=== PATIENT | female | born 1975 | race Caucasian/White ===

== ENCOUNTER 2016-06-07 19:15 | Emergency (ER) | payer MEDICAID ==
[~2016-06-07] VITALS: Ht 160 cm; Wt 42.0 kg
[~2016-06-07 19:15] MED LIST: IBUP800T23 PO
[2016-06-07 19:16] VITALS: BP 135/88; PULSE 92; RESP 14; TEMP 98.5; O2SAT 98
[2016-06-07 19:30] VITALS: BP 111/74; PULSE 80; RESP 16; O2SAT 99
[2016-06-07] MEDS ORDERED: SODIUM CHLOR 0.9% 1000 ML INJ 1,000 ML IV SCH (19:42)
[2016-06-07] MEDS ORDERED: LIDOCAINE VISCOUS 2% SOLN 15 ML UDC PO ONE (19:45)
[2016-06-07] MEDS ORDERED: SODIUM CHLORIDE 0.9% FLUSH 5 ML FLUSH IVF PRN (19:45)
[2016-06-07] MEDS ORDERED: ALUMINUM/MAGNESIUM/SIMETH 30 ML CUP PO ONE (19:45)
[2016-06-07] MEDS ORDERED: ONDANSETRON HCL 4 MG/2 ML VIAL IVP ONE (19:45)
[2016-06-07] MEDS ORDERED: HYDROmorphone HCL PF 1 MG/ML VIAL IVS ONE (19:45)
[2016-06-07 20:11] LABS: AUTOMATED NEUTROPHIL # 7.7 TH/MM3 (1.8-7.7); BASOPHIL # 0.1 TH/MM3 (0-0.2); BASOPHIL % 0.5 % (0.0-2.0); EOSINOPHIL # 0.1 TH/MM3 (0-0.4); EOSINOPHIL % 1.2 % (0.0-4.0); HEMATOCRIT 38.5 % (35.0-46.0); HEMO FLAGS DIFF FINAL; LYMPHOCYTE # 1.7 TH/MM3 (1.0-4.8); MEAN CELL VOLUME 87.9 FL (80.0-100.0); MONO % 7.9 % (0.0-8.0); NEUT % 74.4 % (16.0-70.0); PLATELET COUNT 323 TH/MM3 (150-450); RED BLOOD COUNT 4.38 MIL/MM3 (4.00-5.30); RED CELL DISTRIBUTION WIDTH 14.2 % (11.6-17.2); WHITE BLOOD COUNT 10.4 TH/MM3 (4.0-11.0)
[2016-06-07] MEDS ORDERED: HYDR-3533 PO (20:19)
[2016-06-07] MEDS ORDERED: ZOFR4TAB3 SL (20:19)
--- NOTE | 2016-06-07 20:19 | PD ---
HPI Chief Complaint: Flank/Kidney Pain Time Seen by Provider: 19:32 Travel History International Travel<30 days: No Contact w/Intl Traveler<30days: No History of Present Illness HPI 41-year-old female arrives complaining of epigastric abdominal pain and left upper quadrant abdominal pain which radiates to the back. She states it feels similar to prior episodes of pancreatitis. She woke up with the pain. He states she drinks alcohol occasionally weekends but not daily. Pain is constant and worse with palpitation. No fever. She vomited twice today. She vomited after eating sloppy [employer] for dinner. No VB/VD. No urinary complaints. Tylenol and ibuprofen have not been helpful. PFSH Past Medical History Anemia: Yes Autoimmune Disease: Yes Anxiety: Yes Cancer: No Cardiovascular Problems: No Chemotherapy: No Diminished Hearing: No Medical other: Yes (ANEMIA) Musculoskeletal: No Neurologic: No Psychiatric: Yes Reproductive: No Respiratory: No Integumentary: Yes (NEURO FIBROMATOSIS-1) Immunizations Current: No Radiation Therapy: No Tetanus Vaccination: Unknown ?: Not : 4 Para: 3 Miscarriage: 1 : 0 Ovarian Cysts: Yes Tubal Ligation: Yes (12/22) Past Surgical History Abdominal Surgery: Yes (LAPAROSCOPIC SURGERY FOR ENDOMETRIOSIS) Section: Yes (X2) Cholecystectomy: Yes Gynecologic Surgery: Yes (HYST, C SECTION ) Hysterectomy: Yes Joint Replacement: No Other Surgery: Yes Social History Alcohol Use: Yes (SOCIALLY) Tobacco Use: Yes (1/2PPD) Substance Use: No Allergies-Medications (Allergen,Severity, Reaction): Coded Allergies: Bees (Verified Allergy, Severe, Anaphylaxis, 06/07/16) Latex (Verified Allergy, Severe, SWELLING AND HIVES, 06/07/16) Uncoded Allergies: CLEAR TAPE (Allergy, Severe, BLISTERS, 11/19/14) . NUTS (Allergy, Severe, ITCHING, 11/19/14) . Reported Meds & Prescriptions Reported Meds & Active Scripts Active Zofran Odt (Ondansetron Odt) 4 Mg Tab 4 Mg SL Q8HR PRN Lortab (Hydrocodone-Acetaminophen) 5-325 Mg Tab 1-2 Tab PO Q6H PRN Review of Systems Except as stated in HPI: all other systems reviewed are Neg General / Constitutional: No: Fever Gastrointestinal: Positive: Nausea, Vomiting, Abdominal Pain Physical Exam Narrative GENERAL: 41-year-old female pleasant mild distress SKIN: Warm and dry. HEAD: Atraumatic. Normocephalic. EYES: Pupils equal and round. No scleral icterus. No injection or drainage. ENT: No nasal bleeding or discharge. Mucous membranes pink and moist. NECK: Trachea midline. No JVD. CARDIOVASCULAR: Regular rate and rhythm. No murmur appreciated. RESPIRATORY: No accessory muscle use. Clear to auscultation. Breath sounds equal bilaterally. GASTROINTESTINAL: Soft. Minimal epigastric tenderness. Minimal tenderness in the left upper quadrant. No significant flank tenderness either side. MUSCULOSKELETAL: No obvious deformities. No clubbing. No cyanosis. No edema. NEUROLOGICAL: Awake and alert. No obvious cranial nerve deficits. Motor grossly within normal limits. Normal speech. PSYCHIATRIC: Appropriate mood and affect; insight and judgment normal. Data Data Last Documented VS Vital Signs Date Time Temp Pulse Resp B/P Pulse Ox O2 Delivery O2 Flow Rate FiO2 06/07/16 21:15 76 16 105/87 99 Room Air 06/07/16 19:16 98.5 VS reviewed Orders Complete Blood Count With Diff (06/07/16 19:42) Comprehensive Metabolic Panel (06/07/16 19:42) Lipase (06/07/16 19:42) Iv Access Insert/Monitor (06/07/16 19:42) Ecg Monitoring (06/07/16 19:42) Oximetry (06/07/16 19:42) Ondansetron Inj (Zofran Inj) (06/07/16 19:45) Sodium Chlor 0.9% 1000 Ml Inj (Ns 1000 M (06/07/16 19:42) Sodium Chloride 0.9% Flush (Ns Flush) (06/07/16 19:45) Hydromorphone Pf Inj (Dilaudid Pf Inj) (06/07/16 19:45) Al-Mag Hy-Si 40-40-4 Mg/Ml Liq (Mag-Al P (06/07/16 19:45) Lidocaine 2% Viscous (Xylocaine 2% Visco (06/07/16 19:45) Labs Laboratory Tests Test 06/07/16 19:45 White Blood Count 10.4 TH/MM3 Red Blood Count 4.38 MIL/MM3 Hemoglobin 12.7 GM/DL Hematocrit 38.5 % Mean Corpuscular Volume 87.9 FL Mean Corpuscular Hemoglobin 29.0 PG Mean Corpuscular Hemoglobin 33.0 % Concent Red Cell Distribution Width 14.2 % Platelet Count 323 TH/MM3 Mean Platelet Volume 7.5 FL Neutrophils (%) (Auto) 74.4 % Lymphocytes (%) (Auto) 16.0 % Monocytes (%) (Auto) 7.9 % Eosinophils (%) (Auto) 1.2 % Basophils (%) (Auto) 0.5 % Neutrophils # (Auto) 7.7 TH/MM3 Lymphocytes # (Auto) 1.7 TH/MM3 Monocytes # (Auto) 0.8 TH/MM3 Eosinophils # (Auto) 0.1 TH/MM3 Basophils # (Auto) 0.1 TH/MM3 CBC Comment DIFF FINAL Differential Comment Sodium Level 138 MEQ/L Potassium Level 3.7 MEQ/L Chloride Level 104 MEQ/L Carbon Dioxide Level 26.4 MEQ/L Anion Gap 8 MEQ/L Blood Urea Nitrogen 13 MG/DL Creatinine 0.84 MG/DL Estimat Glomerular Filtration 75 ML/MIN Rate Random Glucose 101 MG/DL Calcium Level 8.6 MG/DL Total Bilirubin 0.5 MG/DL Aspartate Amino Transf 8 U/L (AST/SGOT) Alanine Aminotransferase 16 U/L (ALT/SGPT) Alkaline Phosphatase 62 U/L Total Protein 7.3 GM/DL Albumin 3.8 GM/DL Lipase 109 U/L [facility] Medical Decision Making Medical Screen Exam Complete: Yes Emergency Medical Condition: Yes Medical Record Reviewed: Yes Differential Diagnosis Constipation, Gastritis, Acute Cholecystitis, Biliary Colic, Pancreatitis, ROSALES , Hepatitis, Bowel Obstruction, Cystitis, Mesenteric Ischemia, AAA, Appendicitis , Renal Stone/Hydronephrosis, GERD, perforated viscous Narrative Course CBC & BMP Diagram 06/07/16 19:45 LFTs and lipase are normal. The patient has undergone hysterectomy. She's had 5 CT scans here before. Index of suspicion for medical/surgical emergency is quite low. Her blood work is unremarkable. Minimal epigastric tenderness and LUQ tenderness. Pt reassessed at 915pm and reports feeling better. Return precautions discussed. Pt ready for discharge. Diagnosis Primary Impression: Abdominal pain Qualified Code: R10.13 - Epigastric pain Additional Impression: Nausea & vomiting Qualified Code: R11.2 - Non-intractable vomiting with nausea, unspecified vomiting type Referrals: Chewning,Ravi R. DO 2 days Additional Instructions: You have a choice when it comes to health care, and we are glad that you chose [facility]. Hopefully, we have met your expectations on today's visit. You are welcome to return to [facility] at any time, as we are committed to meeting the health care needs of our community. Med/Other Pt SpecificInfo: Prescription(s) given Scripts Ondansetron Odt (Zofran Odt)4 Mg Tab4 Mg SL Q8HR PRN (NAUSEA OR VOMITING) #15 TAB Ref 0 Prov:Chapito Wiseman MD 06/07/16 Hydrocodone-Acetaminophen (Lortab)5-325 Mg Tab1-2 Tab PO Q6H PRN (PAIN SCALE 6 TO 10) #15 TAB Ref 0 Prov:Chapito Wsieman MD 06/07/16 Disposition: 01 DISCHARGE HOME Condition: Stable Chapito Wiseman MD Jun 07, 2016 20:19
[2016-06-07 20:30] VITALS: BP 106/81; PULSE 70; RESP 16; O2SAT 99
[2016-06-07 20:41] LABS: ANION GAP 8 MEQ/L (5-15); AST (GOT) 8 U/L (15-37); BICARBONATE 26.4 MEQ/L (21.0-32.0); BLOOD UREA NITROGEN 13 MG/DL (7-18); CHLORIDE 104 MEQ/L (98-107); GLOMERULAR FILTRATION RATE 75 ML/MIN (>89); POTASSIUM 3.7 MEQ/L (3.5-5.1); SODIUM (NA) 138 MEQ/L (136-145)
[2016-06-07 20:45] LABS: ALKALINE PHOSPHATASE 62 U/L (45-117); ALT (GPT) 16 U/L (10-53); TOTAL BILIRUBIN ADULT 0.5 MG/DL (0.2-1.0)
[2016-06-07 21:15] VITALS: BP 105/87; PULSE 76; RESP 16; O2SAT 99
== END 2016-06-07 21:57 | disposition home or self-care (01) ==
LOC: NEPC 19:15
DX: R10.13 Epigastric pain (principal); R11.2 Nausea with vomiting, unspecified; D64.9 Anemia, unspecified; F17.210 Nicotine dependence, cigarettes, uncomplicated
CPT/HCPCS: 80053; 83690; 85025; 96374; 96375; 99284; J1170; J2405; J7030

== ENCOUNTER 2016-10-18 13:23 | Emergency (ER) | payer MEDICAID ==
[~2016-10-18] VITALS: Ht 157.5 cm; Wt 45.0 kg
[~2016-10-18 13:23] MED LIST changes: +HYDR-3533 PO; -IBUP800T23 PO; +ZOFR4TAB3 SL
[2016-10-18 13:25] VITALS: BP 140/68; PULSE 114; RESP 20; TEMP 98.4; O2SAT 100
--- NOTE | 2016-10-18 14:35 | PD ---
HPI Chief Complaint: Pain: Acute or Chronic Time Seen by Provider: 14:32 Travel History International Travel<30 days: No Contact w/Intl Traveler<30days: No Traveled to known affect area: No History of Present Illness HPI Patient is a 41-year-old female presenting to emergency for evaluation of right groin pain. Patient states it started Wednesday when she woke up. She denies any preceding injury or trauma, she denies any nausea, vomiting, dysuria, fevers. Patient states she took Tylenol this morning with no significant relief of her symptoms. She reports a history of ovarian cysts, she has had a partial hysterectomy. She reports the pain is 8 out of 10 and states it's sharp and shooting. PFSH Past Medical History Anemia: Yes Autoimmune Disease: Yes Anxiety: Yes Cancer: No Cardiovascular Problems: No Chemotherapy: No Diminished Hearing: No Musculoskeletal: No Neurologic: No Psychiatric: Yes Reproductive: No Respiratory: No Integumentary: Yes (NEURO FIBROMATOSIS-1) Immunizations Current: No Radiation Therapy: No ?: Not : 4 Para: 3 Miscarriage: 1 : 0 Ovarian Cysts: Yes Tubal Ligation: Yes (12/22) Past Surgical History Abdominal Surgery: Yes (LAPAROSCOPIC SURGERY FOR ENDOMETRIOSIS) Section: Yes (X2) Cholecystectomy: Yes Gynecologic Surgery: Yes (HYST, C SECTION ) Hysterectomy: Yes Joint Replacement: No Other Surgery: Yes Social History Alcohol Use: Yes (SOCIALLY) Tobacco Use: Yes (1/2PPD) Substance Use: No Allergies-Medications (Allergen,Severity, Reaction): Coded Allergies: Bees (Verified Allergy, Severe, Anaphylaxis, 10/18/16) Latex (Verified Allergy, Severe, SWELLING AND HIVES, 10/18/16) Uncoded Allergies: CLEAR TAPE (Allergy, Severe, BLISTERS, 11/19/14) . NUTS (Allergy, Severe, ITCHING, 11/19/14) . Reported Meds & Prescriptions Reported Meds & Active Scripts Active Tramadol (Tramadol HCl) 50 Mg Tab 50 Mg PO Q4H PRN Zofran Odt (Ondansetron Odt) 4 Mg Tab 4 Mg SL Q8HR PRN Lortab (Hydrocodone-Acetaminophen) 5-325 Mg Tab 1-2 Tab PO Q6H PRN Review of Systems Except as stated in HPI: all other systems reviewed are Neg Respiratory: No: Shortness of Breath Gastrointestinal: Positive: Abdominal Pain, No: Nausea, Vomiting Musculoskeletal: Positive: Myalgias Neurologic: No: Weakness, Dizziness Physical Exam Narrative GENERAL: Well-developed, well-nourished, alert female. Resting comfortably in no acute distress. SKIN: Focused skin assessment warm/dry. HEAD: Atraumatic. Normocephalic. EYES: Pupils equal and round. No scleral icterus. No injection or drainage. ENT: No nasal bleeding or discharge. Mucous membranes pink and moist. NECK: Trachea midline. No JVD. CARDIOVASCULAR: Regular rate and rhythm. No murmur appreciated. RESPIRATORY: No accessory muscle use. Clear to auscultation. Breath sounds equal bilaterally. GASTROINTESTINAL: Abdomen soft, mildly tender in suprapubic region, nondistended. Hepatic and splenic margins not palpable. Bowel sounds, no rebound, guarding MUSCULOSKELETAL: No obvious deformities. No clubbing. No cyanosis. No edema. NEUROLOGICAL: Awake and alert. No obvious cranial nerve deficits. Motor grossly within normal limits. Normal speech. PSYCHIATRIC: Appropriate mood and affect; insight and judgment normal. Data Data Last Documented VS Vital Signs Date Time Temp Pulse Resp B/P Pulse Ox O2 Delivery O2 Flow Rate FiO2 10/18/16 16:31 16 10/18/16 13:25 98.4 114 140/68 100 Room Air Orders Urinalysis - C+S If Indicated (10/18/16 14:27) Ct Abd/Pel W Iv Contrast(Rout) (10/18/16 ) Basic Metabolic Panel (Bmp) (10/18/16 15:06) Complete Blood Count With Diff (10/18/16 15:06) Iv Access Insert/Monitor (10/18/16 15:06) Diatrizoate Liq ( Gastroview Liq) (10/18/16 15:15) Oral Contrast - Adult (10/18/16 15:17) Morphine Inj (Morphine Inj) (10/18/16 15:45) Iohexol 350 Inj (Omnipaque 350 Inj) (10/18/16 17:06) Labs Laboratory Tests Test 10/18/16 10/18/16 14:57 15:37 Urine Color YELLOW Urine Turbidity CLEAR Urine pH 7.0 Urine Specific [employer] 1.010 Urine Protein NEG mg/dL Urine Glucose (UA) NEG mg/dL Urine Ketones NEG mg/dL Urine Occult Blood NEG Urine Nitrite NEG Urine Bilirubin NEG Urine Urobilinogen LESS THAN 2.0 MG/DL Urine Leukocyte Esterase NEG Urine RBC LESS THAN 1 /hpf Urine WBC 1 /hpf Urine Squamous Epithelial 3 /hpf Cells Urine Bacteria RARE /hpf Urine Mucus FEW /lpf Microscopic Urinalysis Comment CULT NOT INDICATED White Blood Count 7.6 TH/MM3 Red Blood Count 4.59 MIL/MM3 Hemoglobin 13.3 GM/DL Hematocrit 40.2 % Mean Corpuscular Volume 87.6 FL Mean Corpuscular Hemoglobin 29.0 PG Mean Corpuscular Hemoglobin 33.1 % Concent Red Cell Distribution Width 13.7 % Platelet Count 282 TH/MM3 Mean Platelet Volume 7.7 FL Neutrophils (%) (Auto) 86.4 % Lymphocytes (%) (Auto) 8.7 % Monocytes (%) (Auto) 4.3 % Eosinophils (%) (Auto) 0.1 % Basophils (%) (Auto) 0.5 % Neutrophils # (Auto) 6.6 TH/MM3 Lymphocytes # (Auto) 0.7 TH/MM3 Monocytes # (Auto) 0.3 TH/MM3 Eosinophils # (Auto) 0.0 TH/MM3 Basophils # (Auto) 0.0 TH/MM3 CBC Comment DIFF FINAL Differential Comment Sodium Level 138 MEQ/L Potassium Level 4.4 MEQ/L Chloride Level 103 MEQ/L Carbon Dioxide Level 29.3 MEQ/L Anion Gap 6 MEQ/L Blood Urea Nitrogen 12 MG/DL Creatinine 0.89 MG/DL Estimat Glomerular Filtration 71 ML/MIN Rate Random Glucose 88 MG/DL Calcium Level 9.2 MG/DL MDM Medical Decision Making Medical Screen Exam Complete: Yes Emergency Medical Condition: Yes Interpretation(s) Laboratory Tests Test 10/18/16 10/18/16 14:57 15:37 Urine Color YELLOW Urine Turbidity CLEAR Urine pH 7.0 Urine Specific [employer] 1.010 Urine Protein NEG mg/dL Urine Glucose (UA) NEG mg/dL Urine Ketones NEG mg/dL Urine Occult Blood NEG Urine Nitrite NEG Urine Bilirubin NEG Urine Urobilinogen LESS THAN 2.0 MG/DL Urine Leukocyte Esterase NEG Urine RBC LESS THAN 1 /hpf Urine WBC 1 /hpf Urine Squamous Epithelial 3 /hpf Cells Urine Bacteria RARE /hpf Urine Mucus FEW /lpf Microscopic Urinalysis Comment CULT NOT INDICATED White Blood Count 7.6 TH/MM3 Red Blood Count 4.59 MIL/MM3 Hemoglobin 13.3 GM/DL Hematocrit 40.2 % Mean Corpuscular Volume 87.6 FL Mean Corpuscular Hemoglobin 29.0 PG Mean Corpuscular Hemoglobin 33.1 % Concent Red Cell Distribution Width 13.7 % Platelet Count 282 TH/MM3 Mean Platelet Volume 7.7 FL Neutrophils (%) (Auto) 86.4 % Lymphocytes (%) (Auto) 8.7 % Monocytes (%) (Auto) 4.3 % Eosinophils (%) (Auto) 0.1 % Basophils (%) (Auto) 0.5 % Neutrophils # (Auto) 6.6 TH/MM3 Lymphocytes # (Auto) 0.7 TH/MM3 Monocytes # (Auto) 0.3 TH/MM3 Eosinophils # (Auto) 0.0 TH/MM3 Basophils # (Auto) 0.0 TH/MM3 CBC Comment DIFF FINAL Differential Comment Sodium Level 138 MEQ/L Potassium Level 4.4 MEQ/L Chloride Level 103 MEQ/L Carbon Dioxide Level 29.3 MEQ/L Anion Gap 6 MEQ/L Blood Urea Nitrogen 12 MG/DL Creatinine 0.89 MG/DL Estimat Glomerular Filtration 71 ML/MIN Rate Random Glucose 88 MG/DL Calcium Level 9.2 MG/DL Vital Signs Date Time Temp Pulse Resp B/P Pulse Ox O2 Delivery O2 Flow Rate FiO2 10/18/16 13:25 98.4 114 20 140/68 100 Room Air Differential Diagnosis Muscle strain versus ovarian cyst versus urinary tract infection versus appendicitis versus other Narrative Course Patient's a 41 year old female presenting with right pelvic pain, suprapubic pain since Wednesday. Patient's vital signs are stable, patient is mildly tender on exam. She had a partial hysterectomy but her ovaries are intact. Imaging ordered and pending. Patient given pain medication per my attending physician. Labs reviewed and no acute disease identified. CT scan abdomen and pelvis shows cystic right ovary. There are also changes to the duodenum that were present on prior exam, hepatic lesions which are nonspecific, likely representing prominent emphysematous change at the lung bases with some mild increased parenchymal density at the medial right middle lobe. This density is less prominent now than on prior exams. Patient will be discharged home. She will be given a short course of oral pain medication. 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 She is encouraged to return to emergency department for new or worsening symptoms. Patient verbalized understanding of instructions. Patient is stable for discharge. Diagnosis Primary Impression: Ovarian cyst Referrals: [facility] Patient Instructions: General Instructions, Ovarian Cyst (DC) Additional Instructions: Follow-up with her primary doctor Follow-up with your electric locomotive firer/fireman Take medications as directed Return to emergency department for any new or worsening symptoms Do not drive or operate heavy machinery while taking narcotic pain medication Med/Other Pt SpecificInfo: Prescription(s) given Scripts Tramadol 50 Mg Tab50 Mg PO Q4H PRN (PAIN) #10 TAB Ref 0 Prov:Azeem Bland MD 10/18/16 Disposition: 01 DISCHARGE HOME Condition: Stable [facility] Oct 18, 2016 14:35
[2016-10-18] MEDS ORDERED: DIATRIZOATE MEGLUM/DIATRIZOATE SOD 9 ML CUP ONE (15:15)
[2016-10-18] MEDS ORDERED: MORPHINE SULFATE 4 MG/ML INJ IV PUSH ONE (15:45)
[2016-10-18 16:26] LABS: AUTOMATED NEUTROPHIL # 6.6 TH/MM3 (1.8-7.7); BASOPHIL % 0.5 % (0.0-2.0); EOSINOPHIL % 0.1 % (0.0-4.0); HEMATOCRIT 40.2 % (35.0-46.0); HEMO FLAGS DIFF FINAL; LYMPH % 8.7 % (9.0-44.0); LYMPHOCYTE # 0.7 TH/MM3 (1.0-4.8); MEAN CELL VOLUME 87.6 FL (80.0-100.0); MEAN CORPUSCULAR HGB CONC 33.1 % (32.0-36.0); MONO % 4.3 % (0.0-8.0); NEUT % 86.4 % (16.0-70.0); PLATELET COUNT 282 TH/MM3 (150-450); RED BLOOD COUNT 4.59 MIL/MM3 (4.00-5.30); RED CELL DISTRIBUTION WIDTH 13.7 % (11.6-17.2); WHITE BLOOD COUNT 7.6 TH/MM3 (4.0-11.0)
[2016-10-18 16:31] VITALS: RESP 16
[2016-10-18 16:43] LABS: BICARBONATE 29.3 MEQ/L (21.0-32.0); POTASSIUM 4.4 MEQ/L (3.5-5.1)
[2016-10-18 16:51] LABS: BACTERIA, URINE RARE /hpf; BLOOD, URINE NEG (NEG); COMMENT (UR) CULT NOT INDICATED; CULTURE IF INDICATED CULT NOT INDICATED; GLUCOSE,URINE NEG (NEG); KETONE, URINE NEG (NEG); MUCUS URINE FEW /lpf (OCC); NITRITE,URINE NEG (NEG); SQUAMOUS EPITHELIAL CELL URINE 3 /hpf (0-5); URINE COLOR YELLOW (YELLW/STRAW)
[2016-10-18] MEDS ORDERED: IOHEXOL 350 MG/ML 10 ML VIAL (for RAD DIAG) IV ONE (17:06)
--- NOTE | 2016-10-18 17:49 | RADRPT ---
EXAM DATE/TIME: 10/18/2016 17:03 [facility] COMPARISON: CT ABDOMEN & PELVIS W CONTRAST, July 04, 2010, 22:45. CT ABDOMEN & PELVIS W/O CONTRAST, December 10, 2013, 16:22. CT ABDOMEN & PELVIS W/O CONTRAST, July 15, 2014, 15:11. CT ABDOMEN & PELVIS W/O CONTR AST, March 22, 2013, 17:03. CT ABDOMEN & PELVIS W CONTRAST, March 02, 2013, 18:59. INDICATIONS : Right lower abdomen pain for two days. IV CONTRAST: 70 cc Omnipaque 350 (iohexol) IV ORAL CONTRAST: Partial prescribed oral contrast ingested. RADIATION DOSE: 4.49 CTDIvol (mGy) MEDICAL HISTORY : neuro fibromatosis SURGICAL HISTORY : Hysterectomy. Tubal ligation. ENCOUNTER: Initial ACUITY: 2 days PAIN SCALE: 8/10 LOCATION: Right lower quadrant TECHNIQUE: Volumetric scanning of the abdomen and pelvis was performed. Using automated exposure control and ad justment of the mA and/or kV according to patient size, radiation dose was kept as low as reasonably achievable to obtain optimal diagnostic quality images. DICOM format image data is available electro nically for review and comparison. FINDINGS: LOWER LUNGS: There is emphysematous change at the lung bases. There is increased density seen at the medial right lingula. This area appeared more prominent on the prior exam. LIVER: There is a 0.6 cm hypodensity seen in the superior aspect of the lateral segment of the left lobe of the liver and a smaller 0.3 cm hypodensity in the anterior segment of the right lobe of the liver. Th e patient is status post cholecystectomy. There is dilatation of the intrahepatic biliary ducts likel y representing a reservoir phenomenon following cholecystectomy. This finding was present previously. SPLEEN: Normal size without lesion. PANCREAS: Within normal limits. KIDNEYS: Normal in size and shape. There is no mass, stone or hydronephrosis. ADRENAL GLANDS: Within normal limits. VASCULAR: There is no aortic aneurysm. BOWEL/MESENTERY: There is dilatation of the proximal duodenum measuring up to 4 cm to the right of the aorta and SMA. The duodenum is decrease in caliber measuring 0.5 cm between the aorta and SMA. The remaining aspects of the small bowel appear unremarkable. The appendix is not seen. Significant inflammatory change ar ound the colon is not seen. ABDOMINAL WALL: Within normal limits. RETROPERITONEUM: There is no lymphadenopathy. BLADDER: No wall thickening or mass. REPRODUCTIVE: There is a 2.3 cm and 1.5 cm cyst seen at the right adnexa likely related to right ovarian cyst. INGUINAL: There is no lymphadenopathy or hernia. MUSCULOSKELETAL: Within normal limits for patient age. CONCLUSION: 1. Dilatation of the duodenum proximal to the portion of the duodenum straddling the aorta and SMA. C ompression between the aorta and SMA can cause this appearance. This finding was present on the prior exam. 2. Cystic change at the right adnexa likely related to ovarian cysts. This could be followed with a p elvic ultrasound examination in 6-12 weeks. 3. Persistent intrahepatic biliary duct dilatation likely reflecting a reservoir phenomenon following cholecystectomy. 4. 2 small focal subcentimeter hepatic lesions. These are nonspecific. They likely represent cysts or hemangiomas. 5. Prominent emphysematous change at the lung bases with some mild increased parenchymal density at t he medial right middle lobe. The parenchymal density appears less prominent on the current exam. Ravi Barajas MD on October 18, 2016 at 17:34 Board Certified Radiologist. This report was verified electronically.
[2016-10-18] MEDS ORDERED: TRAM50TA PO (17:58)
== END 2016-10-18 19:19 | disposition home or self-care (01) ==
LOC: NEPD 13:23
DX: N83.201 Unspecified ovarian cyst, right side (principal)
CPT/HCPCS: 74177; 80048; 81001; 85025; 96374; 99285; J2270; Q9963; Q9967

== ENCOUNTER 2016-11-01 14:07 | Emergency (ER) | payer MEDICAID ==
[~2016-11-01] VITALS: Ht 160 cm; Wt 44.0 kg
[~2016-11-01 14:07] MED LIST changes: +TRAM50TA PO
[2016-11-01 14:09] VITALS: BP 165/73; PULSE 84; RESP 20; TEMP 97.7; O2SAT 98
--- NOTE | 2016-11-01 15:37 | RADRPT ---
EXAM DATE/TIME: 11/01/2016 15:00 [facility] COMPARISON: CT BRAIN W/O CONTRAST, November 11, 2015, 15:56. INDICATIONS : Trauma; fall hit right forehead. RADIATION DOSE: 56.35 CTDIvol (mGy) MEDICAL HISTORY : None SURGICAL HISTORY : Hysterectomy. Cholecystectomy. ENCOUNTER: Initial ACUITY: 1 day PAIN SCALE: 5/10 LOCATION: Right cranial TECHNIQUE: Multiple contiguous axial images were obtained of the head. Using automated exposure control and adj ustment of the mA and/or kV according to patient size, radiation dose was kept as low as reasonably a chievable to obtain optimal diagnostic quality images. DICOM format image data is available electro nically for review and comparison. FINDINGS: There is no evidence for intracranial hemorrhage, mass effect, mass lesions, edema, or extra-axial fl uid collections. The visualized bony structures appear intact. The ventricles are normal size for t he patient's age. There are no signs of acute infarction for technique. CONCLUSION: Unremarkable study. Melvin Johanesn MD on November 01, 2016 at 15:33 Board Certified Radiologist. This report was verified electronically.
--- NOTE | 2016-11-01 15:57 | PD ---
HPI Chief Complaint: Head Injury Time Seen by Provider: 14:00 Travel History International Travel<30 days: No Contact w/Intl Traveler<30days: No Traveled to known affect area: No History of Present Illness HPI 41-year-old female presents emergency department for evaluation of head injury. Patient states she was in the shower when she slipped falling forward hitting the right side of her forehead on the corner of the sink. She had no loss of consciousness. She is not anticoagulated. She denies neck pain. She reports nausea without vomiting since the injury. PFSH Past Medical History Anemia: Yes Autoimmune Disease: Yes Anxiety: Yes Cancer: No Cardiovascular Problems: No Chemotherapy: No Diminished Hearing: No Gastrointestinal Disorders: No Hypertension: No Implanted Vascular Access Dvce: No Musculoskeletal: No Neurologic: No Psychiatric: Yes Reproductive: No Respiratory: No Integumentary: Yes (NEURO FIBROMATOSIS-1) Immunizations Current: No Radiation Therapy: No Influenza Vaccination: No ?: Not : 4 Para: 3 Miscarriage: 1 : 0 Ovarian Cysts: Yes Tubal Ligation: Yes (12/22) Past Surgical History Abdominal Surgery: Yes (LAPAROSCOPIC SURGERY FOR ENDOMETRIOSIS) Section: Yes (X2) Cholecystectomy: Yes Gynecologic Surgery: Yes (HYST, C SECTION ) Hysterectomy: Yes Joint Replacement: No Neurologic Surgery: No Other Surgery: Yes Social History Alcohol Use: Yes (OCASS) Tobacco Use: Yes (2PPD) Substance Use: No Allergies-Medications (Allergen,Severity, Reaction): Coded Allergies: Bees (Verified Allergy, Severe, Anaphylaxis, 11/01/16) Latex (Verified Allergy, Severe, SWELLING AND HIVES, 11/01/16) Uncoded Allergies: CLEAR TAPE (Allergy, Severe, BLISTERS, 11/19/14) . NUTS (Allergy, Severe, ITCHING, 11/19/14) . Reported Meds & Prescriptions Reported Meds & Active Scripts Active No Active Prescriptions or Reported Medications Review of Systems Except as stated in HPI: all other systems reviewed are Neg General / Constitutional: No: Fever Eyes: No: Visual changes HENT: Positive: Headaches Cardiovascular: No: Chest Pain or Discomfort Respiratory: No: Shortness of Breath Gastrointestinal: No: Abdominal Pain Genitourinary: No: Dysuria Physical Exam Narrative GENERAL: Alert, well-appearing female no acute distress. SKIN: Focused skin assessment warm/dry. HEAD: Moderate sized right forehead scalp hematoma. Normocephalic. EYES: Pupils equal and round. No scleral icterus. No injection or drainage. EOM intact. ENT: No nasal bleeding or discharge. Mucous membranes pink and moist. NECK: Trachea midline. No JVD. CARDIOVASCULAR: Regular rate and rhythm. No murmur appreciated. RESPIRATORY: No accessory muscle use. Clear to auscultation. Breath sounds equal bilaterally. GASTROINTESTINAL: Abdomen soft, non-tender, nondistended. Hepatic and splenic margins not palpable. MUSCULOSKELETAL: No obvious deformities. No clubbing. No cyanosis. No edema. NEUROLOGICAL: Awake and alert. No obvious cranial nerve deficits. Motor grossly within normal limits. Normal speech. PSYCHIATRIC: Appropriate mood and affect; insight and judgment normal. Data Data Last Documented VS Vital Signs Date Time Temp Pulse Resp B/P Pulse Ox O2 Delivery O2 Flow Rate FiO2 11/01/16 14:30 18 97 Room Air 11/01/16 14:09 97.7 84 165/[address] Brain W/O Iv Contrast(Rout) (11/01/16 ) [facility] Medical Decision Making Medical Screen Exam Complete: Yes Emergency Medical Condition: Yes Differential Diagnosis Closed head injury, ICH, scalp hematoma Narrative Course 41-year-old female resents emergency department for evaluation of head injury prior to arrival. Patient had no loss of consciousness. She is reporting headache and mild nausea since the event. The scan obtained showed no intracranial abnormality. Patient was given Tylenol and Zofran. Diagnostic studies were discussed with patient. She reports symptom improvement. She agrees to follow-up with primary care doctor. Return precautions discussed. She verbalized understanding. Diagnosis Primary Impression: Closed head injury Qualified Code: S09.90XA - Closed head injury, initial encounter Additional Impression: Scalp hematoma Qualified Code: S00.03XA - Scalp hematoma, initial encounter Referrals: Primary Care Physician Additional Instructions: Take [id number] Tylenol and/or Motrin as needed for pain. Follow-up with her primary care doctor for recheck. Return to emergency department if he developed severe increasing headache, repeated vomiting, change in vision or any new concerns. Scripts No Active Prescriptions or Reported Meds Disposition: 01 DISCHARGE HOME Condition: Stable Maribel Tinajero Nov 01, 2016 15:57
[2016-11-01] MEDS ORDERED: ACETAMINOPHEN 325 MG TAB PO ONE (16:30)
[2016-11-01] MEDS ORDERED: ONDANSETRON ODT 4 MG TAB PO ONE (16:30)
== END 2016-11-01 16:28 | disposition home or self-care (01) ==
LOC: NEPD 14:07
DX: S09.90XA Unspecified injury of head, initial encounter (principal); S00.03XA Contusion of scalp, initial encounter; R11.0 Nausea; F41.9 Anxiety disorder, unspecified; D64.9 Anemia, unspecified; Q85.01 Neurofibromatosis, type 1; F17.200 Nicotine dependence, unspecified, uncomplicated; W01.0XXA Fall on same level from slipping, tripping and stumbling without subsequent striking against object, initial encounter
CPT/HCPCS: 70450; 99283

== ENCOUNTER 2016-12-09 00:06 | Emergency (ER) | payer MEDICAID ==
[~2016-12-09] VITALS: Ht 167.6 cm; Wt 70.0 kg
[2016-12-09 00:15] VITALS: BP 166/66; PULSE 84; RESP 16; TEMP 98.6; O2SAT 98
[2016-12-09 00:30] VITALS: BP 114/72; PULSE 74; RESP 16; TEMP 98.1; O2SAT 98
[2016-12-09] MEDS ORDERED: oxyCODONE/ACETAMINOPHEN 5 MG/325 MG TAB PO ONE (01:30)
--- NOTE | 2016-12-09 01:32 | RADRPT ---
EXAM DATE/TIME: 12/09/2016 01:02 [facility] COMPARISON: No previous studies available for comparison. INDICATIONS : Skateboard landed on top of foot. Swelling on anterior foot. MEDICAL HISTORY : None. SURGICAL HISTORY : None. ENCOUNTER: Initial ACUITY: 1 day PAIN SCORE: 0/10 LOCATION: Right foot FINDINGS: There is soft tissue swelling on the dorsum of the foot with a small avulsion fracture of one of the proximal metatarsals, not clearly seen on the AP or oblique view. No dislocation. No other fractures are seen. CONCLUSION: 1. Soft tissue swelling on the dorsum of the foot with small avulsion fracture of one of the proximal metatarsals, not seen on AP view. Kris Kee MD on December 09, 2016 at 1:29 Board Certified Radiologist. This report was verified electronically.
--- NOTE | 2016-12-09 01:34 | RADRPT ---
EXAM DATE/TIME: 12/09/2016 01:04 [facility] COMPARISON: No previous studies available for comparison. INDICATIONS : Skateboard landed on top of foot. MEDICAL HISTORY : None. SURGICAL HISTORY : None. ENCOUNTER: Initial ACUITY: 1 day PAIN SCORE: 0/10 LOCATION: Right ankle FINDINGS: There is a small avulsion fracture of one of the proximal metatarsals only seen on the lateral view, probably the second metatarsal. Overlying soft tissue swelling. Right ankle is intact. CONCLUSION: 1. Small avulsion fracture of proximal metatarsal with overlying soft tissue swelling. Ankle intact. Kris Kee MD on December 09, 2016 at 1:31 Board Certified Radiologist. This report was verified electronically.
--- NOTE | 2016-12-09 01:34 | PD ---
HPI Chief Complaint: Injury Time Seen by Provider: 00:52 Travel History International Travel<30 days: No Contact w/Intl Traveler<30days: No Traveled to known affect area: No History of Present Illness HPI Patient is a 41 year old female who presents with c/o of right ankle and right foot pain. Reports that tripped on her son's skateboard tonight and injured her right foot and ankle. Denies headache/loc. Reports pain only to her right ankle/foot. PFSH Past Medical History Anemia: Yes Autoimmune Disease: Yes Blood Disorders: Yes (ANEMIA) Anxiety: Yes Cancer: No Cardiovascular Problems: No Chemotherapy: No Diminished Hearing: No Gastrointestinal Disorders: No Hypertension: No Implanted Vascular Access Dvce: No Medical other: Yes (ANEMIA) Musculoskeletal: No Neurologic: No Psychiatric: Yes Reproductive: No Respiratory: No Integumentary: Yes (NEURO FIBROMATOSIS-1) Immunizations Current: No Radiation Therapy: No Tetanus Vaccination: Unknown ?: Not : 4 Para: 3 Miscarriage: 1 : 0 Ovarian Cysts: Yes Tubal Ligation: Yes (12/22) Past Surgical History Abdominal Surgery: Yes (LAPAROSCOPIC SURGERY FOR ENDOMETRIOSIS) Section: Yes (X2) Cholecystectomy: Yes Gynecologic Surgery: Yes (HYST, C SECTION ) Hysterectomy: Yes Joint Replacement: No Neurologic Surgery: No Other Surgery: Yes Social History Alcohol Use: Yes (OCASS) Tobacco Use: Yes (2PPD) Substance Use: No Allergies-Medications (Allergen,Severity, Reaction): Coded Allergies: bee venom protein (honey bee) (Unverified Allergy, Severe, Anaphylaxis, ) latex (Unverified Allergy, Severe, SWELLING AND HIVES, 12/01/16) Uncoded Allergies: CLEAR TAPE (Allergy, Severe, BLISTERS, 11/19/14) . NUTS (Allergy, Severe, ITCHING, 11/19/14) . Reported Meds & Prescriptions Reported Meds & Active Scripts Active No Active Prescriptions or Reported Medications Review of Systems General / Constitutional: No: Fever Eyes: No: Visual changes HENT: No: Headaches Cardiovascular: No: Chest Pain or Discomfort Respiratory: No: Shortness of Breath Gastrointestinal: No: Abdominal Pain Genitourinary: No: Dysuria Musculoskeletal: Positive: Pain (right ankle/foot pain) Skin: No Rash Neurologic: No: Weakness Psychiatric: No: Depression Endocrine: No: Polydipsia Hematologic/Lymphatic: No: Easy Bruising Physical Exam Narrative GENERAL: Well-nourished, well-developed patient. SKIN: Focused skin assessment warm/dry. HEAD: Normocephalic. EYES: No scleral icterus. No injection or drainage. NECK: Supple, trachea midline. No JVD or lymphadenopathy. CARDIOVASCULAR: Regular rate and rhythm without murmurs, gallops, or rubs. RESPIRATORY: Breath sounds equal bilaterally. No accessory muscle use. GASTROINTESTINAL: Abdomen soft, non-tender, nondistended. MUSCULOSKELETAL: No cyanosis LLE: normal exam RLE: patient with bruising to right foot, pulses intact, neurovascularly intact BACK: Nontender without obvious deformity. No CVA tenderness. Data Data Last Documented VS Vital Signs Date Time Temp Pulse Resp B/P (MAP) Pulse Ox O2 Delivery O2 Flow Rate FiO2 12/09/16 00:30 98.1 74 16 114/72 (86) 98 Room Air Orders Orders Ankle, Complete ([id number]) (12/09/16 ) Foot, Complete ([id number]) (12/09/16 ) Oxycodone-Acetamin 5-325 Mg (Percocet (12/09/16 01:30) Splinting (12/09/16 ) MDM Medical Decision Making Medical Screen Exam Complete: Yes Emergency Medical Condition: Yes Interpretation(s) Vital Signs Date Time Temp Pulse Resp B/P (MAP) Pulse Ox O2 Delivery O2 Flow Rate FiO2 12/09/16 00:30 98.1 74 16 114/72 (86) 98 Room Air 12/09/16 00:30 98 Room Air 12/09/16 00:15 98.6 84 16 166/66 (99) 98 Differential Diagnosis Differential includes foot/ankle/ fracture Narrative Course Patient is a 41-year-old female who presents to ER with c/o of right foot/ankle pain after she tripped on her son's skateboard tonight. Denies any other injuries. Patient with a small avulsion fracture of the proximal metatarsals and probably the second metatarsal. Patient will be placed in a short leg splint. She was given a copy of her radiology report, she'll follow up with orthopedic surgery and return to emergency room as needed. Procedures Procedure Narrative right short leg splint placed to right lower extremity by orthotist/prosthetist, pulses intact, neurovascular intact after splint Diagnosis Primary Impression: Metatarsal bone fracture Qualified Codes: S92.301A - Fracture of unspecified metatarsal bone(s), right foot, initial encounter for closed fracture Referrals: Toño Adler MD Patient Instructions: General Instructions, Narcotic given in the ED Additional Instructions: Please follow up with orthopedic surgery in 2-3 days Return to ER as needed Do not drive or operate heavy machinery while taking narcotic pain medications Please bring the copy of your xray report to your doctor's office for follow up on all findings from today Med/Other Pt SpecificInfo: Prescription(s) given Scripts Ibuprofen (Ibuprofen) 600 Mg Tab 600 MG PO Q6H Y for Pain/Inflammation, #40 TAB 0 Refills Prov: Staci Fink DO 12/09/16 Oxycodone-Acetaminophen (Percocet) 5-325 mg Tab 1 TAB PO Q6H Y for PAIN, #10 TAB 0 Refills Prov: Staci Fink DO 12/09/16 Disposition: 01 DISCHARGE HOME Condition: Stable Staci Fink DO Dec 09, 2016 01:34
[2016-12-09] MEDS ORDERED: IBUP-232 PO (01:52)
[2016-12-09] MEDS ORDERED: PERC5TAB12 PO (01:52)
== END 2016-12-09 02:21 | disposition home or self-care (01) ==
LOC: NEPC 00:06
DX: S92.301A Fracture of unspecified metatarsal bone(s), right foot, initial encounter for closed fracture (principal); W22.8XXA Striking against or struck by other objects, initial encounter
CPT/HCPCS: 29515; 73610; 73630